=== PATIENT | female | born 1985 | race Two or more races ===

== ENCOUNTER 2016-11-15 21:38 | Emergency (ER) | payer SELFPAY ==
[~2016-11-15] VITALS: Ht 167.6 cm; Wt 81.6 kg
[2016-11-15 22:05] VITALS: BP 116/62
--- NOTE | 2016-11-15 22:27 | PHYS DOC ---
Past Medical History Past Medical History: No Pertinent History Past Surgical History: No Surgical History Alcohol Use: None Drug Use: None Adult General Chief Complaint Chief Complaint: VAGINAL PROBLEM HPI HPI Patient is a 31 year old female presents to the emergency department stating that for the last month she's been having suprapubic pain. She states that she has increased pain with sexual intercourse. She states that she has had some vaginal discharge however cannot describe it. She currently has on her menstrual cycle. She states that she's had a tubal ligation so denies any possibility of being . She does state she is concern for sexual transmitted infections. She denies any frequency urgency or pain with urination. Review of Systems Review of Systems Constitutional: Denies fever or chills [] Eyes: Denies change in visual acuity, redness, or eye pain [] HENT: Denies nasal congestion or sore throat [] Respiratory: Denies cough or shortness of breath [] Cardiovascular: No additional information not addressed in HPI [] GI: Denies abdominal pain, nausea, vomiting, bloody stools or diarrhea. Complaint of suprapubic abdominal pain : Denies dysuria or hematuria [] Musculoskeletal: Denies back pain or joint pain [] Integument: Denies rash or skin lesions [] Neurologic: Denies headache, focal weakness or sensory changes [] Endocrine: Denies polyuria or polydipsia [] Current Medications Current Medications Current Medications Medications (Trade) Dose Ordered Sig/[place] Start Time Stop Time Status Last Admin Dose Admin Azithromycin (Zithromax) 1,000 mg 1X ONCE 11/15/16 23:00 11/15/16 23:01 DC 11/15/16 23:01 1,000 MG Ceftriaxone Sodium (Rocephin Im) 250 mg 1X ONCE 11/15/16 23:00 11/15/16 23:01 DC 11/15/16 23:01 250 MG Metronidazole (Flagyl) 2,000 mg 1X ONCE 11/15/16 23:00 11/15/16 23:01 DC 11/15/16 23:01 2,000 MG Allergies Allergies Allergies Coded Allergies Type Severity Reaction Last Updated Verified No Known Drug Allergies 11/15/16 No Physical Exam Physical Exam Constitutional: Well developed, well nourished, no acute distress, non-toxic appearance. [] HENT: Normocephalic, atraumatic, bilateral external ears normal, oropharynx moist, no oral exudates, nose normal. [] Eyes: PERRLA, EOMI, conjunctiva normal, no discharge. [] Neck: Normal range of motion, no tenderness, supple, no stridor. [] Cardiovascular:Heart rate regular rhythm, no murmur [] Lungs & Thorax: Bilateral breath sounds clear to auscultation [] Skin: Warm, dry, no erythema, no rash. [] Back: No tenderness Extremities: No tenderness, no cyanosis, no clubbing, ROM intact, no edema. [] Neurologic: Alert and oriented X 3, normal motor function, normal sensory function, no focal deficits noted. [] Psychologic: Affect normal, judgement normal, mood normal. [] Patient with tenderness noted in the suprapubic abdominal area. Vaginal exam was completed with parent at the bedside. Pelvic exam with speculum exam with bloody discharge noted in the vaginal vault. Manual exam with no CMT no adnexal tenderness noted. Current Patient Data Vital Signs Vital Signs Date Time Temp Pulse Resp B/P (MAP) Pulse Ox O2 Delivery O2 Flow Rate FiO2 11/15/16 22:05 98.4 77 18 98 Room Air 98.4 Lab Values Laboratory Tests Test 11/15/16 22:30 11/15/16 22:36 Urine Collection Type Unknown Urine Color Yellow Urine Clarity Clear Urine pH 5.5 Urine Specific [place] 1.015 Urine Protein Negative mg/dL (NEG-TRACE) Urine Glucose (UA) Negative mg/dL (NEG) Urine Ketones (Stick) Negative mg/dL (NEG) Urine Blood Large (NEG) Urine Nitrite Negative (NEG) Urine Bilirubin Negative (NEG) Urine Urobilinogen Dipstick 0.2 mg/dL (0.2 mg/dL) Urine Leukocyte Esterase Negative (NEG) Urine RBC 1-2 /HPF (0-2) Urine WBC 0 /HPF (0-4) Urine Squamous Epithelial Cells Few /LPF Urine Bacteria 0 /HPF (0-FEW) Urine Mucus Mod /LPF POC Urine HCG, Qualitative Hcg negative (Negative) Microbiology 11/15/16 Wet Prep - Final, Complete EKG EKG [] Radiology/Procedures Radiology/Procedures [] Course & Med Decision Making Course & Med Decision Making Pertinent Labs and Imaging studies reviewed. (See chart for details) After patients pelvic exam patient states she is concerned for STD. Patient was provided with Rocephin, Zithromax and Flagyl. Urinalysis was positive for blood. However patient is currently on her menstrual cycle. Patient was instructed that her STD information will be obtained in approximately 2-3 days she'll be notified by phone if this is positive. Recommended avoiding sexual intercourse for the next 2 days. Recommended sex safe practice such as using condoms. Patient will be discharged home in stable condition signs and symptoms to return back to emergency parents been provided. Recommended patient following up to primary care physician in the next 7-10 days. All questions and concerns been answered at patient's bedside. [] Dragon Disclaimer Dragon Disclaimer This electronic medical record was generated, in whole or in part, using a voice recognition dictation system. Departure Departure Impression: Primary Impression: Pelvic pain Additional Impression: Concern about STD in female without diagnosis Disposition: 01 HOME, SELF-CARE Condition: STABLE Referrals: UNKNOWN PCP NAME (PCP) Patient Instructions: Pelvic Pain, Female, [id number], Sexually Transmitted Disease Additional Instructions: Your urinalysis was negative for any urinary tract infection. Your vaginal swab was negative for any bacterial vaginosis or Trichomonas. Your sexual transmitted infection results will be back in approximately 2-3 days. You'll be notified if it's positive. However you have been treated for sexually transmitted infections here in the emergency department. Refrain from sexual intercourse for the next 2 weeks. Safe sex practice either abstinence or using condoms is recommended. Follow-up primary care physician in the next 7-10 days. Return back to emergency prior signs and symptoms of become worse. Problem Qualifiers JAYLA BARBOSA APRN Nov 15, 2016 22:27
[2016-11-15 22:45] LABS: BILIRUBIN,URINE NEGATIVE (NEG); GLUCOSE,URINE NEGATIVE (NEG); NITRITE,URINE NEGATIVE (NEG); PH,URINE 5.5; PROTEIN,URINE NEGATIVE (NEG-TRACE); UROBILINOGEN,URINE 0.2 mg/dL (0.2 mg/dL)
[2016-11-15 22:54] LABS: BACTERIA,URINE 0 /HPF (0-FEW); SQUAMOUS EPITHELIAL CELL,UR FEW /LPF; WBC,URINE 0 /HPF (0-4)
[2016-11-15] MEDS ORDERED: cefTRIAXone IM 250 MG VIAL IM ONE (23:00)
[2016-11-15] MEDS ORDERED: metroNIDAZOLE 500 MG TABLET PO ONE (23:00)
[2016-11-15] MEDS ORDERED: AZITHROMYCIN 250 MG TABLET. PO ONE (23:00)
== END 2016-11-16 00:25 | disposition home or self-care (01) ==
LOC: ER 21:38
DX: Z11.3 Encounter for screening for infections with a predominantly sexual mode of transmission (principal); R10.2 Pelvic and perineal pain; N89.8 Other specified noninflammatory disorders of vagina
CPT/HCPCS: 81001; 81025; 87491; 87591; 96372; 99284; J0696; Q0111; Q0144